=== PATIENT | female | born 1980 | race African-American/Black ===

== ENCOUNTER 2019-08-24 05:50 | Inpatient (IN) ==
[2019-08-24] MEDS ORDERED: ONDANSETRON 4 MG/2 ML VIAL IV PRN (06:56)
[2019-08-24] MEDS ORDERED: OXYTOCIN/LR 20 UNIT/1,000 ML BAG IV SCH (07:00)
[2019-08-24 07:06] LABS: Basophils # 0.1 10*3/uL (0.0-0.2); Basophils % 0.7 % (0.0-0.8); Eosinophils # 0.2 10*3/uL (0.0-0.87); Eosinophils % 2.4 % (0.00-10.9); Hematocrit 37.9 VOL% (35.7-47.0); Hemoglobin 11.9 GM/DL (12.0-16.0); Lymphocytes # 1.9 10*3/uL (1.4-4.0); Lymphocytes % 18.9 % (21.3-54.2); Mean Corpuscular HGB Conc 31.4 GM/DL (32-36); Mean Corpuscular Volume 92.7 FL (87-102); Mean Platelet Volume 10.5 FL (9.6-12.0); Monocytes % 8.9 % (1.7-12.7); Neutrophils % 66.1 % (38.7-73.9); Platelet Count 144 T/CUMM (130-400); Red Blood Count 4.09 MC/CUMM (3.8-5.5); Red Cell Distribution Width 14.4 % (9.3-17.3)
[2019-08-24] MEDS: LACTATED RINGERS 1,000 ML IV SCH ×2 (07:15→13:28)
[2019-08-24] MEDS ORDERED: LACTATED RINGERS 1,000 ML IV ONE (08:51)
[2019-08-24] MEDS ORDERED: FAMOTIDINE 20 MG/2 ML VIAL IV ONE (08:51)
[2019-08-24] MEDS ORDERED: CITRIC ACID/SODIUM CITRATE 30 ML UDCUP PO ONE (08:51)
[2019-08-24] MEDS ORDERED: hydrOXYzine HCL 25 MG/1 ML VIAL IM PRN (08:52)
[2019-08-24] MEDS ORDERED: ePHEDrine 50 MG/ML AMP IV PRN (08:52)
[2019-08-24] MEDS ORDERED: diphenhydrAMINE 50 MG/1 ML VIAL IV PRN ×2 (08:52)
[2019-08-24] MEDS ORDERED: NALOXONE 0.4 MG/ML VIAL IV PRN (08:52)
[2019-08-24] MEDS ORDERED: PROMETHAZINE 25 MG/1 ML VIAL IM ONE (08:52)
[2019-08-24] MEDS ORDERED: fentaNYL 2 MCG/ROPIV 0.2% EPID 100 ML EPIDURAL SCH (09:00)
[2019-08-24 13:27] LABS: Apearance,Urine CLEAR (Clear); Bilirubin,Urine Negative (Negative); Blood, Urine Small mg/dL (Negative); Glucose,Urine (UA) Negative (Negative); Ketones,Urine 5 mg/dL (Negative); Mucus,Urine Occasional /LPF (Occasional); Nitrite,Urine Negative (Negative); Protein,Urine Negative; RBC,Urine 3 /HPF (0-4); Squamous Epithelial Cell,Urine Occasional /HPF (0-10); Urine Color Yellow (Yellow); WBC,Urine <1 /HPF (0-6)
[2019-08-24] MEDS ORDERED: LIDOCAINE 1% 50 ML VIAL ONE (16:27)
[2019-08-24 16:41] LABS: Cord Venous Blood HCO3 19.2 MMOL/L; Cord Venous Blood PO2 36.7 MMHG
[2019-08-24] MEDS ORDERED: LANOLIN 50% CREAM 0.3 OZ TUBE TOP PRN (20:29)
[2019-08-24] MEDS ORDERED: BISACODYL 10 MG SUPP RECTAL PRN (20:29)
[2019-08-24] MEDS ORDERED: ACETAMINOPHEN 325 MG TABLET PO PRN (20:29)
[2019-08-24] MEDS ORDERED: WITCH HAZEL PADS 100/JAR TOP PRN (20:29)
[2019-08-24] MEDS ORDERED: BENZOCAINE 20%/MENTHOL 0.5% SPRAY 56 GM CAN TOP PRN (20:29)
[2019-08-24] MEDS ORDERED: RHO(D) IMMUNE GLOBULIN 300 MCG SYRINGE IM ONE (20:29)
[2019-08-24] MEDS ORDERED: MEASLES/MUMPS/RUBELLA VACCINE 0.5 ML VIAL SUBCUT ONE (20:29)
[2019-08-24] MEDS ORDERED: DIPH/TET/ACEL PERT BOOSTER VACCINE 0.5 ML VIAL IM ONE (20:29)
[2019-08-24] MEDS ORDERED: oxyCODONE/ACETAMINOPHEN 5-325 MG TABLET PO PRN (20:29)
[2019-08-24] MEDS ORDERED: HYDROCORTISONE 2.5% RECTAL CREAM 30 GM TUBE TOP PRN (20:29)
[2019-08-24] MEDS: DOCUSATE SODIUM 100 MG CAPSULE PO SCH (20:51)
[2019-08-24] MEDS: oxyCODONE/ACETAMINOPHEN 5-325 MG TABLET PO PRN (20:51)
[2019-08-25] MEDS: IBUPROFEN 800 MG TABLET PO PRN ×2 (04:39→22:10)
[2019-08-25 05:15] LABS: Basophils # 0.1 10*3/uL (0.0-0.2); Basophils % 0.4 % (0.0-0.8); Eosinophils # 0.1 10*3/uL (0.0-0.87); Hematocrit 31.3 VOL% (35.7-47.0); Hemoglobin 9.8 GM/DL (12.0-16.0); Immature Granulocytes % 1.7 %; Immature Granulocytes Absolute 0.24 #; Lymphocytes # 1.7 10*3/uL (1.4-4.0); Lymphocytes % 11.9 % (21.3-54.2); Mean Corpuscular HGB Conc 31.3 GM/DL (32-36); Mean Corpuscular Volume 91.3 FL (87-102); Monocytes % 7.4 % (1.7-12.7); Neutrophils % 77.6 % (38.7-73.9); Platelet Count 137 T/CUMM (130-400); Red Blood Count 3.43 MC/CUMM (3.8-5.5); Red Cell Distribution Width 14.3 % (9.3-17.3)
[2019-08-25] MEDS: DOCUSATE SODIUM 100 MG CAPSULE PO SCH ×2 (09:19→20:40)
[2019-08-26] MEDS: IBUPROFEN 800 MG TABLET PO PRN (06:50)
[2019-08-26] MEDS: DOCUSATE SODIUM 100 MG CAPSULE PO SCH (09:09)
[2019-08-26] MEDS: oxyCODONE/ACETAMINOPHEN 5-325 MG TABLET PO PRN (09:09)
[2019-08-26 11:52] VITALS: BP 125/88
== END 2019-08-26 13:20 | disposition home or self-care (01) | DRG 807 ==
LOC: N.LDOUT 05:50 → N.LD 05:52 → N.OB 20:20
PROVIDERS: ADMIT Obstetrics & Gynecology; ATTEND Obstetrics & Gynecology